=== PATIENT | male | born 1950 ===

== ENCOUNTER 2023-11-29 09:16 | Outpatient (CLI) | payer OTHER, SELFPAY ==
--- NOTE | 2023-11-29 09:23 | USCV_ITS ---
Jeferson Benitez Age: 72 Gender: M : 1950 Exam Date: 11/29/2023 09:51 Ordering Phys: NOT ON FILE, DOCTOR XX Technologist: CT Exam Location[place] [facility] [place]ication: BP: 126 / 91 HR: 54 Rhythm: Sinus Technical Quality: Adequate MEASUREMENTS (Male / Female) Normal Values 2D ECHO LVOT Diameter 2.1 cm LV Ejection Fraction MOD 2C 72.3 % LV Ejection Fraction 2C AL 71.4 % LA Diameter 3.7 cm RA Systolic Volume 4C AL 44.2 ml RA Systolic Volume 4C MOD 43.6 ml LA Sys Volume AL 45.8 cm cubed LA Sys Volume Index AL 23.9 cm cubed/m squared Aorta at Sinotubular Diameter 2.6 cm IVC Diameter 1.7 cm M-MODE LA Ao Ratio MM 1.7 AV Cusp Separation MM 1.8 cm DOPPLER AV Peak Velocity 202.0 cm/s LVOT Peak Velocity 126.0 cm/s AV Area Cont Eq vti 2.6 cm squared AV Area Cont Eq pk 2.2 cm squared MV Peak Velocity 94.0 cm/s MV Area PHT 2.3 cm squared Mitral E to A Ratio 0.8 TR Peak Velocity 98.0 cm/s TR Peak Gradient 3.8 mmHg TV Peak E Velocity 85.0 cm/s Right Atrial Pressure 3.0 mmHg Pulmonary Artery Systolic Pressu 6.8 mmHg PV Peak Velocity 101.0 cm/s FINDINGS Left Ventricle Normal left ventricular size, systolic function and wall thickness, with no regional wall motion abnormalities. Grade I/IV diastolic dysfunction (abnormal relaxation filling pattern), normal to mildly elevated filling pressures. Left ventricular ejection fraction is estimated at 60 %. Right Ventricle Normal right ventricular size and systolic function. Normal right ventricular systolic pressure. Right Atrium The right atrium is normal in size. Left Atrium The left atrium is normal in size. Mitral Valve Structurally normal mitral valve. Trace mitral valve regurgitation. Aortic Valve Structurally normal trileaflet aortic valve. Mild aortic valve calcification. Aortic valve sclerosis without stenosis. Mild aortic valve regurgitation. Tricuspid Valve Structurally normal tricuspid valve without significant stenosis or regurgitation. Pulmonary artery systolic pressure is normal. Pulmonic Valve Pulmonic valve not well visualized. Pericardium Normal pericardium without effusion. Aorta Normal ascending aorta dimension. IVC The inferior vena cava appears normal. CONCLUSIONS Normal left ventricular size, systolic function and wall thickness, with no regional wall motion abnormalities. Grade I/IV diastolic dysfunction (abnormal relaxation filling pattern), normal to mildly elevated filling pressures. Left ventricular ejection fraction is estimated at 60 %. Structurally normal mitral valve. Trace mitral valve regurgitation. Structurally normal trileaflet aortic valve. Mild aortic valve calcification. Aortic valve sclerosis without stenosis. Mild aortic valve regurgitation. There are no prior echocardiogram studies to compare. Dr. Gustavo Mendez MD (Electronically Signed) Final Date: 30 November 2023 12:52 S
== END 2023-11-29 09:17 | disposition home or self-care (01) ==
DX: I35.1 Nonrheumatic aortic (valve) insufficiency (principal); I50.30 Unspecified diastolic (congestive) heart failure; I35.0 Nonrheumatic aortic (valve) stenosis
CPT/HCPCS: 93306